=== PATIENT | male | born 1950 | race Caucasian/White ===

== ENCOUNTER 2017-11-01 09:18 | Day surgery (SDC) | payer OTHER ==
[2017-11-01] MEDS ORDERED: IBUP400 (09:33)
[2017-11-01] MEDS ORDERED: Amitiza24 MCG (09:33)
== END 2017-11-01 11:35 | disposition home or self-care (01) ==
LOC: ORSCSDS 09:18
PROVIDERS: Internal Medicine Gastroenterology
PROC: 0DBH8ZX Excision of Cecum, Via Natural or Artificial Opening Endoscopic, Diagnostic (ICD-10-PCS; principal; 2017-11-01 10:45)
DX: D50.9 Iron deficiency anemia, unspecified (principal); D12.0 Benign neoplasm of cecum; K59.00 Constipation, unspecified; Z86.010 Personal history of colon polyps
CPT/HCPCS: 88305; J7120

== ENCOUNTER 2018-12-11 11:57 | Day surgery (SDC) | payer OTHER ==
[~2018-12-11] VITALS: Ht 182.9 cm; Wt 87.9 kg
[~2018-12-11 11:57] MED LIST: Amitiza24 MCG; IBUP400
[2018-12-11] MEDS ORDERED: MIRALAX17 GM (12:48)
[2018-12-11] MEDS ORDERED: IRON 100 PLUS1 EACH PO (12:49)
--- NOTE | 2018-12-11 15:16 | NUR ---
12/11/18 2916 Xiomara Miguel PT INTO RECLINER AT 1500, STEADY DURING TRANSFER. POLAR CLARY IN PLACE AND PILLOW UNDER RIGHT ARM FOR COMFORT. VSS. PT AT CHAIRSIDE. PT TOLERATING WELL AND DENIES NAUSEA AND PAIN AT THIS TIME. CALL LIGHT IN REACH.
== END 2018-12-11 16:03 | disposition home or self-care (01) ==
LOC: ORSCSDS 11:57
PROVIDERS: Orthopaedic Surgery
PROC: 0LQ14ZZ Repair Right Shoulder Tendon, Percutaneous Endoscopic Approach (ICD-10-PCS; principal; 2018-12-11 13:30)
PROC: 0LS10ZZ Reposition Right Shoulder Tendon, Open Approach (ICD-10-PCS; principal; 2018-12-11 13:30)
PROC: 0RNJ4ZZ Release Right Shoulder Joint, Percutaneous Endoscopic Approach (ICD-10-PCS; principal; 2018-12-11 13:30)
PROC: 0RBJ4ZZ Excision of Right Shoulder Joint, Percutaneous Endoscopic Approach (ICD-10-PCS; principal; 2018-12-11 13:30)
DX: M75.111 Incomplete rotator cuff tear or rupture of right shoulder, not specified as traumatic (principal); M75.51 Bursitis of right shoulder; M19.011 Primary osteoarthritis, right shoulder; M75.41 Impingement syndrome of right shoulder
CPT/HCPCS: C1713; J0171; J0690; J1100; J2250; J2405; J3010; J7120

== ENCOUNTER → 2022-01-05 | Outpatient (CLI) | payer OTHER ==
[~2022-01-05] MED LIST changes: +IRON 100 PLUS1 EACH PO; +MIRALAX17 GM
[2022-01-06 09:51] LABS: Stool Occult Bld Immuno 1 Negative (NEGATIVE)
== END | disposition home or self-care (01) ==
LOC: LAB SHORT 12:15
PROVIDERS: Physician Assistant
DX: Z12.11 Encounter for screening for malignant neoplasm of colon (principal)
CPT/HCPCS: 82274

== ENCOUNTER 2023-02-02 06:44 | Day surgery (SDC) | payer OTHER ==
[~2023-02-02] VITALS: Ht 182.9 cm; Wt 87.1 kg
[2023-02-02] MEDS ORDERED: DOCU100 PO ×2 (06:56)
[2023-02-02] MEDS ORDERED: Acetaminophen650 M1 (06:57)
[2023-02-02] MEDS ORDERED: SENN187 (06:57)
[2023-02-02] MEDS ORDERED: IBUP200 PO (06:58)
[2023-02-02] MEDS ORDERED: ALLERGY RELIEF5 M1 (06:59)
[2023-02-02] MEDS ORDERED: Saw Palmetto160 MG (06:59)
--- NOTE | 2023-02-02 07:00 | NUR ---
02/02/23 0700 Stephanie Tiwari AT 0657 PLEDGET AT 0700
[2023-02-02 08:27] VITALS: BP 130/74
== END 2023-02-02 08:40 | disposition home or self-care (01) ==
LOC: ORSCSDS 06:44
PROVIDERS: Ophthalmology
PROC: 08DJ3ZZ Extraction of Right Lens, Percutaneous Approach (ICD-10-PCS; principal; 2023-02-02 08:00)
DX: H25.13 Age-related nuclear cataract, bilateral (principal)
CPT/HCPCS: J2001; J2250; J3010; J3301; J7040; V2632

== ENCOUNTER 2023-04-05 09:33 | Day surgery (SDC) | payer OTHER ==
[~2023-04-05] VITALS: Ht 182.9 cm; Wt 87.5 kg
[~2023-04-05 09:33] MED LIST changes: +ALLERGY RELIEF5 M1; +Acetaminophen650 M1; +DOCU100 PO; +IBU600 M1; +IBUP200 PO; +Lovastatin20 MG PO; +METO25ER PO; +MULTVITAMIN; +NITR.4SL SL; +SENN187; +SUDAFED PE PO; +Saw Palmetto160 MG
[2023-04-05 09:52] VITALS: BP 181/84
[2023-04-05 11:28] VITALS: BP 122/62
[2023-04-05 11:30] VITALS: BP 126/61
[2023-04-05 11:45] VITALS: BP 122/77
[2023-04-05 12:01] VITALS: BP 144/98
[2023-04-05] MEDS ORDERED: AMLO5 PO (12:40)
[2023-04-05] MEDS ORDERED: ATOR80 PO (12:40)
[2023-04-05] MEDS ORDERED: Aspir 8181 MG PO (12:41)
[2023-04-05 13:04] VITALS: BP 133/58
--- NOTE | 2023-04-05 13:14 | NUR ---
DISCHARGE REVIEWED WITH PT, VERBALIZES UNDERSTANDING. PT GETTING DRESSED AT THIS TIME. ALL PRESCRIPTIONS HAVE BEEN CALLED INTO PHARMACY.
--- NOTE | 2023-04-05 13:27 | NUR ---
PT DRESSED. TR BAND REMOVED AND CLOTH DOT PLACED. ARM BOARD PLACED TO R FOREARM. INSTRUCTED TO LEAVE IN PLACE FOR 2 DAYS. SALINE LOCK REMOVED WITH CATHETER INTACT. PT TO PRIVATE VEHICLE PER W/C WITH ONE STAFF.
== END 2023-04-05 13:31 | disposition home or self-care (01) ==
LOC: MHTC 09:33
DX: I25.119 Atherosclerotic heart disease of native coronary artery with unspecified angina pectoris (principal); R94.39 Abnormal result of other cardiovascular function study; E78.00 Pure hypercholesterolemia, unspecified
CPT/HCPCS: 76937; 93458; 99152; C1769; C1887; C1894; J1644; J2250; J3010; J7030; J7050; Q9967

== ENCOUNTER 2023-05-09 12:14 | Day surgery (SDC) | payer OTHER ==
[~2023-05-09] VITALS: Ht 182.9 cm; Wt 85.0 kg
[~2023-05-09 12:14] MED LIST changes: +AMLO5 PO; +ATOR80 PO; +Aspir 8181 MG PO
[2023-05-09] MEDS ORDERED: Saw Palmetto160 MG (12:42)
[2023-05-09 13:48] VITALS: BP 122/66
== END 2023-05-09 14:10 | disposition home or self-care (01) ==
LOC: ORSCSDS 12:14
PROVIDERS: Ophthalmology
PROC: 08RK3JZ Replacement of Left Lens with Synthetic Substitute, Percutaneous Approach (ICD-10-PCS; principal; 2023-05-09 13:30)
DX: H25.12 Age-related nuclear cataract, left eye (principal); Z96.1 Presence of intraocular lens; I10 Essential (primary) hypertension; I25.10 Atherosclerotic heart disease of native coronary artery without angina pectoris; Z79.899 Other long term (current) drug therapy
CPT/HCPCS: J2001; J2250; J3010; J3301; J7040; V2632

== ENCOUNTER 2023-08-18 08:40 | Day surgery (SDC) | payer OTHER ==
[~2023-08-18] VITALS: Ht 182.9 cm; Wt 86.6 kg
[2023-08-18] VITALS (12 sets, daily range): BP systolic 115–158; BP diastolic 68–115
[2023-08-18] MEDS ORDERED: AMLO5 PO (09:20)
[2023-08-18] MEDS ORDERED: Flonase 0.05% N16 GM (09:20)
--- NOTE | 2023-08-18 12:24 | NUR ---
assumed care of pt. report from jolly sharma. pt sitting up in chair. [email or web address] given coffee and water per request.
--- NOTE | 2023-08-18 12:38 | NUR ---
AT BEDSIDE. PT GIVEN FOOD TRAY AND IS CURRENTLY EATING LUNCH.
--- NOTE | 2023-08-18 13:08 | NUR ---
RIGHT RADIAL TR BAND SITE SOFT NON-TENDER WITH NO HEMATOMA, NO PULSATILE BLEEDING AND WRIST BOARD IN PLACE. CALL LIGHT IN REACH.
--- NOTE | 2023-08-18 14:08 | NUR ---
2cc removed from tr band. no bleeding noted. site soft and non-tender per pt.
--- NOTE | 2023-08-18 14:18 | NUR ---
TR BAND FULLY DEFLATED. NO BLEEDING NOTED. SITE SOFT AND NON-TENDER PER PT.
--- NOTE | 2023-08-18 14:54 | NUR ---
PT GIVEN DC INSTRUCTIONS AND VERBALIZED UNDERSTANDING. IV OUT. CLOTH DOT, ARM BOARD, AND SLING APPLIED. NO BLEEDING NOTED. SITE SOFT AND NON-TENDER PER PT. PT CHNAGED. PT TAKEN TO LBY VIA WC. TO TAKE PT HOME.
== END 2023-08-18 15:00 | disposition home or self-care (01) ==
LOC: MHTC 08:40
DX: I25.118 Atherosclerotic heart disease of native coronary artery with other forms of angina pectoris (principal)
CPT/HCPCS: 76937; 85347; 93454; 93571; 99152; 99153; A9270; C1769; C1887; C1894; J1644; J2250; J3010; J7030; J7050; Q9967

== ENCOUNTER 2023-11-27 08:34 | Day surgery (SDC) | payer OTHER ==
[~2023-11-27] VITALS: Ht 182.9 cm; Wt 81.0 kg
[~2023-11-27 08:34] MED LIST changes: +Flonase 0.05% N16 GM; +Lactated Ringer's 1,000 ML IV ONE; +propofoL 50 ML IV ONE
[2023-11-27] MEDS ORDERED: Vitamin C100 M1 (08:54)
[2023-11-27] MEDS ORDERED: IRON18 MG (08:54)
[2023-11-27] MEDS ORDERED: Lactated Ringer's 1,000 ML IV ONE (09:06)
[2023-11-27 11:06] VITALS: BP 119/65
== END 2023-11-27 11:07 | disposition home or self-care (01) ==
LOC: ORSCSDS 08:34
PROVIDERS: Internal Medicine Gastroenterology
PROC: 0DBM8ZZ Excision of Descending Colon, Via Natural or Artificial Opening Endoscopic (ICD-10-PCS; principal; 2023-11-27 09:45)
DX: Z12.11 Encounter for screening for malignant neoplasm of colon (principal); D12.4 Benign neoplasm of descending colon; Z86.010 Personal history of colon polyps; Z79.82 Long term (current) use of aspirin; Z79.899 Other long term (current) drug therapy
CPT/HCPCS: 88305; J2704; J7120

== ENCOUNTER → 2024-08-20 | Outpatient (CLI) | payer OTHER ==
[~2024-08-20] MED LIST changes: +IRON18 MG; +Isosorbide Mono30 MG PO; -Lactated Ringer's 1,000 ML IV ONE; +Vitamin C100 M1; -propofoL 50 ML IV ONE
[2024-08-20 15:22] LABS: Stool Occult Bld Immuno 1 Negative (NEGATIVE)
== END | disposition home or self-care (01) ==
LOC: LAB 12:24 → LAB SHORT 12:24
PROVIDERS: Physician Assistant
DX: Z12.11 Encounter for screening for malignant neoplasm of colon (principal)
CPT/HCPCS: 82274